=== PATIENT | male | born 1950 | race African-American/Black ===

== ENCOUNTER 2020-01-09 | Emergency (ER) | payer MEDICARE ==
[~2020-01-09] MED LIST: ACIDOPHILUS PRO PO; ALLOPURINOL300 MG PO; AMLODIPINE5 MG PO; AMOXIL500 MG OR; BENADRYL 50MG C50 MG OR; CARVEDILOL6.25 MG PO; CEPHALEXIN500 MG PO; CLARITIN10 M1 PO; FLONASE NASAL50 MCG; LISINOP/HCTZ1 TA1 PO; LOVASTATIN10 MG PO; METFORMIN500 MG PO; MYCOLOG30 GM EX; PREPARATION RE; ULTRAM50 M1 PO; [UNRECOGNIZED DRUG - REMARK]; [UNRECOGNIZED DRUG - REMARK] EX
[2020-01-09 13:02] LABS: URINE BILIRUBIN - DIPSTICK NEGATIVE (NEGATIVE); URINE BLOOD DIPSTICK NEGATIVE (NEGATIVE); URINE CLARITY CLEAR; URINE COLOR YELLOW; URINE GLUCOSE - DIPSTICK NEGATIVE (NEGATIVE); URINE KETONE TRACE mg/dL (NEGATIVE); URINE LEUK ESTERASE SMALL (Negative); URINE NITRITE - DIPSTICK NEGATIVE (Negative); URINE PROTEIN - DIPSTICK NEGATIVE (NEG-TRACE); URINE UROBILINOGEN - DIPSTICK 0.2 E.U./dL (0.2)
[2020-01-09 13:09] LABS: URINE SQUAMOUS EPITHELIAL CELL FEW EPI/hpf (0-FEW)
[2020-01-09] MEDS ORDERED: METRONIDAZOL500 MG PO ×2 (14:03)
[2020-01-09] MEDS ORDERED: CIPROFLOXACN500 MG PO ×2 (14:03)
== END 2020-01-09 14:10 | disposition home or self-care (01) ==
PROVIDERS: Family Medicine
DX: N39.0 Urinary tract infection, site not specified (principal); K57.32 Diverticulitis of large intestine without perforation or abscess without bleeding; I10 Essential (primary) hypertension; E11.9 Type 2 diabetes mellitus without complications; Z79.84 Long term (current) use of oral hypoglycemic drugs; Z87.442 Personal history of urinary calculi

== ENCOUNTER 2020-06-12 07:31 | Emergency (ER) | payer MEDICARE ==
[~2020-06-12] VITALS: Ht 188 cm; Wt 113.6 kg
[~2020-06-12 07:31] MED LIST changes: +CIPROFLOXACN500 MG PO; +METRONIDAZOL500 MG PO
[2020-06-12 08:19] LABS: URINE BILIRUBIN - DIPSTICK NEGATIVE (NEGATIVE); URINE BLOOD DIPSTICK NEGATIVE (NEGATIVE); URINE COLOR YELLOW; URINE GLUCOSE - DIPSTICK NEGATIVE (NEGATIVE); URINE KETONE NEGATIVE (NEGATIVE); URINE LEUK ESTERASE NEGATIVE (NEGATIVE); URINE NITRITE - DIPSTICK NEGATIVE (Negative); URINE PH 5.5 (4.5-8.0); URINE PROTEIN - DIPSTICK NEGATIVE (NEG-TRACE); URINE SPECIFIC GRAVITY 1.025; URINE UROBILINOGEN - DIPSTICK 0.2 E.U./dL (0.2)
[2020-06-12 08:24] LABS: HEMATOCRIT 40.9 % (39.0-50.0); HEMOGLOBIN 13.1 g/dl (14.0-18.0); IMMATURE GRANULOCYTES 0.4 % (0.0-5.0); MEAN CELL VOLUME 89.9 fL CALC (80.0-100.0); MEAN CORPUSCULAR HGB 28.8 pG CALC (26.0-32.0); NEUT# 3.01 thou/uL (1.82-7.42); RED BLOOD COUNT 4.55 mill/uL (4.70-6.10); RED CELL DISTRI WIDTH 15.2 % (11.5-15.5)
[2020-06-12 08:49] LABS: ALKALINE PHOSPHATASE 58 u/l (38-126); AMYLASE 95 u/l (30-110); ANION GAP 10 (6-22 (CALC)); BILIRUBIN, TOTAL 0.4 mg/dL (0.0-1.4); BUN 25 mg/dL (8-23); BUN/CREATININE RATIO 20 (12-20 (CALC)); CARBON DIOXIDE 24 mmol/l (22-30); CHLORIDE 105 mmol/l (95-108); CREATININE 1.2 mg/dL (0.7-1.3); GFR 60 ML/MIN (>=60 (CALC)); GFR FOR AFR.AMER. > 60 ML/MIN (>=60 (CALC)); LIPASE 222 u/l (23-300); POTASSIUM 4.2 mmol/l (3.5-5.1); SGOT/AST 40 u/l (19-48); SODIUM 134 mmol/l (137-146); TOTAL PROTEIN 6.9 g/dL (6.3-8.2)
[2020-06-12] MEDS ORDERED: ULTRAM50 M1 PO (10:14)
[2020-06-12] MEDS ORDERED: FLEXERIL PO (10:14)
[2020-06-12 10:30] VITALS: BP 112/70
== END 2020-06-12 10:30 | disposition home or self-care (01) ==
LOC: ED 07:31
PROVIDERS: Emergency Medicine
DX: M79.18 Myalgia, other site (principal); S20.221A Contusion of right back wall of thorax, initial encounter; E11.9 Type 2 diabetes mellitus without complications; I10 Essential (primary) hypertension; X58.XXXA Exposure to other specified factors, initial encounter; Z79.84 Long term (current) use of oral hypoglycemic drugs
CPT/HCPCS: Q9967

== ENCOUNTER 2021-06-12 07:22 | Inpatient (IN) | payer MEDICARE ==
[~2021-06-12] VITALS: Ht 188 cm; Wt 114.0 kg
[2021-06-12] VITALS (8 sets, daily range): BP systolic 135–145; BP diastolic 65–80
[~2021-06-12 07:22] MED LIST changes: +ADLT ASA LOW81 MG PO; +FLEXERIL PO; +XARELTO10 MG PO
--- NOTE | 2021-06-12 14:05 | NUR ---
REPORT RECEIVED FROM CHIDI IN [facility], PT TRANSPORTED TO INIT VIA STRETCHER ARRIVING AT 1308, GROGGY BUT ORIENTED, ABD BINDER IN PLACE AND CODI DRAIN IN PLACE WITH BLODY DRAINAGE, GAMBOA CATHETER IN PLACE WITH CLEAR YELLOW URINE, O2 @ 2L IN PLACE, C/O ABD PAIN AT 9/10, ORIENTED TO ROOM AND CALL GANDHI, BED LOCKED IN LOWEST POSITION.
--- NOTE | 2021-06-12 16:21 | NUR ---
LUPIS ROUNDED AFTER DR CHAMPION ROUNDED AND EXPLAINED COMPLICATION DURING PROCEDURE, PT IS HAVING ICE CHIPS AT THIS TIME ORDERED, PAIN CONCERN ADDRESSED, WILL CONTINUE TO MONITOR.
--- NOTE | 2021-06-12 22:04 | NUR ---
PATIENT RESTING IN BED SEMI FOWLERS POSITION. IVF INFUSING. ABD DRESSING VDI. ABDOMINAL BINDER IN POLACE. CODI DRAIN DRAINING SEROSANGUENOUS FLUID. C/O PAIN ADDRESSED WITH SCHEDULED AND PRN PAIN MEDICATIONS WITH POSITIVE EFFECT. ATTEMPTED TO CALL DR. CHAMPION FOR ORDER CLARIFICATION VIA NURSE FROM OFFICE AT 1999, 2014, 2024, ANDD 2199 WITHOUT SUCCESS. WILL CONTINUE TO MONITOR PATIENT CONDITION. MILLIE SAVAGE, PATIENT POST OP DAY 0. ASSESSMENT COMPLETED AND CHARTED. BED IN LOW POSITION. CALL LIGHT WITHIN REACH. GAMBOA CATHETER DRAINING YELLOW URINE TO GRAVITY.
[2021-06-13] VITALS: BP 138/74
--- NOTE | 2021-06-13 00:20 | NUR ---
SPOKE WITH Kranthi AT 0015 FOR ORDER CLARIFICATION. XARELTO GIVEN. WRONG NUMBER DIALED TO CELL PHONE INITIALLY. PATIENT IS IN NO ACUTE DISTRESS. IVABT INFUSING. ABD BINDER IN PLACE. 40CC SEROSANGUENOUS FLUID OUT FROM CODI DRAIN.
[2021-06-13 04:00] VITALS: BP 149/81
[2021-06-13 05:42] LABS: HEMATOCRIT 41.1 % (39.0-50.0); HEMOGLOBIN 13.4 g/dl (14.0-18.0); IMMATURE GRANULOCYTES 0.1 % (0.0-5.0); MEAN CELL VOLUME 93.4 fL CALC (80.0-100.0); MEAN CORPUSCULAR HGB 30.5 pG CALC (26.0-32.0); MEAN CORPUSCULAR HGB CONC 32.6 g/dL CAL (32.0-36.0); NEUT# 8.57 thou/uL (1.82-7.42); RED BLOOD COUNT 4.4 mill/uL (4.70-6.10); RED CELL DISTRI WIDTH 15.2 % (11.5-15.5)
[2021-06-13 06:16] LABS: CREATININE 1.4 mg/dL (0.7-1.3); POTASSIUM 4.5 mmol/l (3.5-5.1)
--- NOTE | 2021-06-13 07:06 | NUR ---
GAMBOA CATHETER DISCONTINUED. PATIENT TOLERATED WELL.
[2021-06-13 07:35] VITALS: BP 135/67
--- NOTE | 2021-06-13 08:00 | NUR ---
PT IN BED WHEN ARRIVED. VITALS AND ASSESSMENT DONE. PT IS ALERT AND ORIENTED. S1 AND S2 HEARD. LUNGS CLEAR. BOWEL SOUNDS ACTIVE IN ALL 4 QUADRANTS. PEDAL PULSES EQUAL BILATERALLY. DRESSING INTACT. IV'S PATENT AND HEALTHY X2. CODI DRAIN INTACT.
--- NOTE | 2021-06-13 08:10 | NUR ---
The patient is screened for PT intervention and no needs are identified at this time
--- NOTE | 2021-06-13 08:48 | NUR ---
The patient is screened for PT intervention and no needs are identified at this time
--- NOTE | 2021-06-13 10:59 | NUR ---
DR DU AND Patty PERERA APRN AT BEDSIDE DISCUSSING POC
--- NOTE | 2021-06-13 11:40 | NUR ---
DR CHAMPION AT BEDSIDE DISCUSSING POC
--- NOTE | 2021-06-13 11:40 | NUR ---
DR CHAMPION AT BEDSIDE DISCUSSING POC
--- NOTE | 2021-06-13 12:09 | NUR ---
PT AMBULATING DOWN THE HALLWAY WITH Trina RENO AT SIDE, STEADY GAIT OBSERVED.
[2021-06-13 15:00] VITALS: BP 152/73
--- NOTE | 2021-06-13 15:40 | NUR ---
PT VOIDED 500 ML OF SAVI COLORED URINE. NO OTHER NEEDS AT THIS TIME. CALL LIGHT WITHIN REACH.
--- NOTE | 2021-06-13 15:55 | NUR ---
PT AMBULATING HALLWAY THIS WRITTER AT SIDE, STEADY GATE OBSERVED. ACCOMPANIED PT BACK INTO BED. CALL LIGHT LEFT WITHIN REACH
--- NOTE | 2021-06-13 16:54 | NUR ---
INCENTIVE SPIROMETER GIVEN TO PT. PT DEMONSTRATED PROPER USE OF DEVICE. PT ACHIEVING 2500ML,X4 REPITITIONS. ENCOURAGED PT TO USE EVERY HR WHILE AWAKE. DEMONSTRATED TO PT HOW TO SPLINT TO RELIEVE ABDOMINAL DISCOMFORT DURING ACTIVITY. CALL LIGHT WITHIN REACH.
[2021-06-13 18:00] VITALS: BP 112/65
[2021-06-13 20:29] VITALS: BP 112/65
[2021-06-14 03:55] VITALS: BP 146/81
[2021-06-14 05:44] LABS: HEMATOCRIT 38.9 % (39.0-50.0); HEMOGLOBIN 12.9 g/dl (14.0-18.0); MEAN CELL VOLUME 92.8 fL CALC (80.0-100.0); MEAN CORPUSCULAR HGB 30.8 pG CALC (26.0-32.0); MEAN CORPUSCULAR HGB CONC 33.2 g/dL CAL (32.0-36.0); RED BLOOD COUNT 4.19 mill/uL (4.70-6.10); RED CELL DISTRI WIDTH 15.3 % (11.5-15.5)
[2021-06-14 05:59] LABS: ANION GAP 11 (6-22 (CALC)); BUN 14 mg/dL (8-23); BUN/CREATININE RATIO 11 (12-20 (CALC)); CARBON DIOXIDE 23 mmol/l (22-30); CHLORIDE 104 mmol/l (95-108); CREATININE 1.3 mg/dL (0.7-1.3); GFR 54 ML/MIN (>=60 (CALC)); GFR FOR AFR.AMER. > 60 ML/MIN (>=60 (CALC)); MAGNESIUM 1.9 mg/dL (1.6-2.3); SODIUM 134 mmol/l (137-146)
[2021-06-14 07:20] VITALS: BP 143/73
--- NOTE | 2021-06-14 07:20 | NUR ---
PT SLEEP UPON ENTERING ROOM. ASSESSMENT AND VITALS DONE. S1 AND S2 HEARD. LUNG SOUNDS CLEAR. BOWEL SOUNDS ACTIVE IN ALL 4 QUADRANTS. PEDAL PULSES BILATERALLY STRONG. PT IV PATENT AND HEALTHY. CODI DRAIN INTACT AND SUCTIONING. ABD BINDER ON AND DRESSINGS INTACT. NO DISTRESS NOTED. CALL LIGHT WITHIN REACH.
--- NOTE | 2021-06-14 12:00 | NUR ---
PT IN BED RESTING. CALL LIGHT WITHIN REACH. NO DISTRESS NOTED.
--- NOTE | 2021-06-14 12:24 | NUR ---
DRESSING CHANGED MD ORDERS. PT TOLERATED WELL. 17 ANATOLIY NOTED. INCISION CDI. CALL LIGHT WITHIN REACH.
--- NOTE | 2021-06-14 12:45 | NUR ---
DR CHAMPION AT BEDSIDE DISCUSSING POC
--- NOTE | 2021-06-14 16:00 | NUR ---
PT IN BED. NO DISTRESS NOTED. CALL LIGHT WITHIN REACH.
[2021-06-14 19:29] VITALS: BP 131/76
--- NOTE | 2021-06-14 19:30 | NUR ---
PATIENT RESTING IN BED AT THIS TIME-AWAKE ALERT AND ORIENTEDX3. PATIENT C/O POST-OP ABD PAIN-MEDICATED WITH DILAUDID 1MG IVP FOR 7/10 ABD PAIN. ABD DRESSING IN PLACE-CDI. ABD BINDER IN PLACE. CODI DRAIN TO LEFT AND INTACT WITH SMALL AMT OF SEROUS DRAINAGE AT THIS TIME. ABD IS DISTENDED WITH HYPOACTIVE BS. TAKING FULL LIQUID DIET IN SMALL AMTS. SALINE LOCK TO LEFT WRIST INTACT-REDRESSED AND J-LOOP APPLIED. SITE REMAINS HEALTHY WITH GOOD BLOOD RETURN. PATIENT IS ABLE TO DEMONSTRATE PROPER USE OF THE IS-REINFORCED. TO BE USED Q1H WHILE AWAkE IN REPS OF 10. VERBALIZES UNDERSTANDING.ENCOURAGED AMBULATION. SCD'S IN PLACE. CALL LIGHT IN REACH. WILL CONT TO MONITOR.
--- NOTE | 2021-06-14 21:00 | NUR ---
PATIENT UP AND AMBULATING IN THE BERGERON WITH SB ASSIST. STEADY ON HIS FEET. BACK TO ROOM AFTER WALKING THE B[place]GER[place]. CALL LIGHT IN REACH. WILL CONT TO MONITOR.
[2021-06-15] VITALS: BP 151/79
--- NOTE | 2021-06-15 01:56 | NUR ---
PATIENT RESTING IN BED AT THIS TIME WITH EYES CLOSED. RESPS ARE EVEN AND UNLABORED. CALL LIGHT IN REACH. WILL CONT TO MONITOR.
--- NOTE | 2021-06-15 02:51 | NUR ---
PATIENT RESTING IN BED-VOIDED 300CC OF SAVI URINE. C/O POST-OP ABD PAIN-MEDICATED WITH DILAUDID 1MG FOR 7/10 PAIN SCALE VIA LEFT WRIST SITE. SITE REMAINS HEALTHY. CALL LIGHT IN REACH. WILL CONT TO MONITOR.
[2021-06-15 04:00] VITALS: BP 142/79
--- NOTE | 2021-06-15 04:43 | NUR ---
PATIENT RESTING IN BED WITH EYES CLOSED. RESPS EVEN AND UNLABORED. ABD BINDER IN PLACE. CODI DRAIN INTACT AND EMPTIED. SALINE LOCK TO LEFT WRIST INTACT. CALL LIGHT IN REACH. WILL CONT TO MONITOR.
[2021-06-15 05:10] LABS: HEMATOCRIT 38.8 % (39.0-50.0); HEMOGLOBIN 12.6 g/dl (14.0-18.0); MEAN CELL VOLUME 93.3 fL CALC (80.0-100.0); MEAN CORPUSCULAR HGB 30.3 pG CALC (26.0-32.0); MEAN CORPUSCULAR HGB CONC 32.5 g/dL CAL (32.0-36.0); RED BLOOD COUNT 4.16 mill/uL (4.70-6.10); RED CELL DISTRI WIDTH 15.3 % (11.5-15.5)
[2021-06-15 05:24] LABS: ANION GAP 12 (6-22 (CALC)); BUN 14 mg/dL (8-23); BUN/CREATININE RATIO 13 (12-20 (CALC)); CARBON DIOXIDE 23 mmol/l (22-30); CHLORIDE 105 mmol/l (95-108); CREATININE 1.1 mg/dL (0.7-1.3); GFR > 60 ML/MIN (>=60 (CALC)); GFR FOR AFR.AMER. > 60 ML/MIN (>=60 (CALC)); POTASSIUM 4.3 mmol/l (3.5-5.1); SODIUM 136 mmol/l (137-146)
--- NOTE | 2021-06-15 05:41 | NUR ---
PATIENT RESTING IN BED AT THIS TIME WITH EYES CLOSED. RESPS ARE EVEN AND UNLABORED. CODI EMPTIED FOR 40CC OF SEROUS FLUID. CALL LIGHT IN REACH. WILL CONT TO MONITOR.
[2021-06-15 07:24] VITALS: BP 161/88
--- NOTE | 2021-06-15 07:24 | NUR ---
PT IN BED WHILE ENTERING ROOM. VITALS AND ASSESSMENT PERFORMED. S1 AND S2 NOTED. LUNG SOUNDS CLEAR. PT WAS ON O2 2 L WHEN I ASSESSED HIM. BOWEL SOUNDS HYPOACTIVE. PEDAL PULSES STRONG BILATERALLY. IV INTACT AND HEALTHY. BINDER IN PLACE WITH DRESSING CDI. CODI DRAIN INTACT AND SUCTIONING. NO DRAINAGE NOTED. NO DISTRESS NOTED. CALL LIGHT WITHIN REACH.
--- NOTE | 2021-06-15 07:56 | NUR ---
PT UP WALKING WITH HERMANN DEAN. NO DISTRESS NOTED. GAIT STEADY.
--- NOTE | 2021-06-15 08:13 | NUR ---
PT AMBULATED DOWN HALLWAYS ACCOMPANIED BY THIS CARE ANALYST. STEADY GAIT, PT ENCOURAGED TO AMBULATE AT LEAST Q4HRS. PT AGREEABLE, SAT IN CHAIR DURING LINEN CHANGE, ENCOURAGED TO EAT BREAKFAST. NO NEEDS AT THIS TIME. CALL DCO SHEARER.
--- NOTE | 2021-06-15 12:00 | NUR ---
PT IN BED. NO DISTRESS NOTED. CALL LIGHT WITHIN REACH.
--- NOTE | 2021-06-15 13:22 | NUR ---
DR. CHAMPION AT BEDSIDE DISCUSSING POC.
[2021-06-15 15:10] VITALS: BP 183/79
--- NOTE | 2021-06-15 16:00 | NUR ---
PTS DRESSING CHANGED. PT TOLERATED WELL. NO OTHER NEEDS AT THIS TIME. CALL LIGHT WITHIN REACH.
--- NOTE | 2021-06-15 16:45 | NUR ---
PT AMBULATED IN THE HALLWAY WITH LOAN EXAMINER. STEADY GAIT. PT TOLERATED WELL.
[2021-06-15 18:58] VITALS: BP 141/70
--- NOTE | 2021-06-15 20:00 | NUR ---
RECEIVED PT FROM DAY SHIFT RN. PT ORIENTED TO PERSON, PLACE AND TIME. PAIN MEDS GAVE (SEE EMAR). VITAL SIGNS ARE STABLE. LAST BLOOD SUGAR 106mg/dl, NOT CRITERIA FOR INSULIN PER DOCTOR ORDER. EDUCATED PT ABOUT MEDICATIONS, PAIN MEDICATIONS, FALLS AND INFECTIONS PRECAUTIONS AND PLAN OF CARE.
[2021-06-15 23:48] VITALS: BP 123/74
--- NOTE | 2021-06-15 23:57 | NUR ---
Hourly Rounding. HR 52 Lpm, PT refused any signs or symtoms. From the flowsheet HR Normally Runnin-55 Lpm. PT observed calm and sleep. Rest of vital signs are stable. Educated PT to notified any symtoms to the nurse.
--- NOTE | 2021-06-16 00:27 | NUR ---
HOURLY ROUNDING. PT OBSERVED SLEEP AND CALM. ANY COMPLAINT ABOUT CHEST PAIN OR PAIN. RE-EDUCATED PT TO NOTIFIED ANY SYMTOMS.
--- NOTE | 2021-06-16 01:19 | NUR ---
RE-ASSESMENT HR ARE 55 LPM. PT OBSERVED CALM AND ALERT. ANY COMPLAIN ABOUT PAIN. RE-EDUCATED PT ABOUT NOTIFIED ANY SYMTOMS.
[2021-06-16 04:00] VITALS: BP 161/79
--- NOTE | 2021-06-16 04:26 | NUR ---
HOURLY ROUNDING. HR ARE AROUND 50-55 Lpm. EDUCATED PT ABOT PAIN MEDS AND INFECTION PRECAUTIONS.
--- NOTE | 2021-06-16 07:15 | NUR ---
REPORT RECEIVED FROM DIANNE OCHOA
[2021-06-16 08:20] VITALS: BP 139/74
--- NOTE | 2021-06-16 08:20 | NUR ---
PT RESTING IN SEMI FOWLERS POSITION,A&O X3;VS OBTAINED AND ASSESSMENT COMPLETED;PT DENIES ANY CURRENT PAIN OR DISCOMFORTS,PAIN SCALE AND REPORTING EDUCATED;PT POD #4 EXPLORATORY LAPAROTOMY WITH REPAIR OF COLONIC PERFORATION;RESPIRATIONS EVEN AND UNLABORED ON RA,CLEAR LUNG SOUNDS;I.S. AT BEDSIDE AND PT DEMONSTRATED USE,ENCOURAGED USE 10X PER HOUR;ABDOMEN DISTENDED/SOFT ON PALPATION AND HYPOACTIVE IN ALL 4 QUADRANTS;CODI PATENT TO LEFT QUADRANT WITH SCANT BLOODY DRAINAGE NOTED AND DRESSING CDI;ABDOMINAL BINDER ALSO IN PLACE;SKIN INTACT;#20G TO LAC FLUSHED AND PATENT,SITE APPEARS HEALTHY;PT DENIES ANY ADDITIONAL NEEDS AND IS ENCOURAGED TO CALL FOR ASSISTANCE IF NEEDED;FALL PRECAUTIONS IN PLACE WITH BED IN THE LOWEST POSITION AND CALL LIGHT IN REACH;WILL CONTINUE TO MONITOR
--- NOTE | 2021-06-16 09:40 | NUR ---
AT BEDSIDE DISCUSSING POC.
--- NOTE | 2021-06-16 10:12 | NUR ---
PT AMBULATING THE HALLWAY WITH A STEADY GAIT.
--- NOTE | 2021-06-16 10:35 | NUR ---
PT REPORTS ABDOMINAL PAIN RATING 7/10 ON THE PAIN SCALE,PT MEDICATED WITH PRN LORTAB 5/325MG PO;ABDOMINAL DRESSINGS CHANGED AT THIS TIME PER ORDER, [address] TO BE IN PLACE;PT DENIES ANY ADDITIONAL NEEDS;ENCOURAGED TO CALL FOR ASSISTANCE IF NEEDED;CALL LIGHT IN REACH;WILL CONTINUE TO MONITOR
--- NOTE | 2021-06-16 11:20 | NUR ---
AT AT BEDSIDE DISCUSSING POC.
--- NOTE | 2021-06-16 12:00 | NUR ---
PT RESTING IN SEMI FOWLERS POSITION;RESPIRATIONS EVEN AND UNLABORED ON RA;PT REPORTS ABDOMINAL PAIN UNRELIEVED BY PRN LORTAB AND REQUESTS ADDITIONAL PAIN MEDICATION FOR ABDOMINAL PAIN RATING 7/10 ON THE PAIN SCALE;PT MEDICATED WITH PRN DILAUDID 1MG SLOW IVP;IV SITE PATENT;CODI DRAIN REMAINS IN PLACE TO SUCTION;ACCUCHECK 162, PT COVERED WITH SLIDING SCALE INSULIN PER ORDER;PT DENIES ANY ADDITIONAL NEEDS AT THIS TIME;ENCOURAGED TO CALL FOR ASSISTANCE IF NEEDED;FALL PRECAUTIONS REMAIN IN PLACE WITH CALL LIGHT IN REACH;WILL CONTINUE TO MONITOR
--- NOTE | 2021-06-16 12:45 | NUR ---
CODI DRAIN REMOVED TO LEFT QUADRANT AT THIS TIME PER ORDER,PT TOLERATED WELL;SITE DRESSED WITH A DRY DRESSING AND TEGADERM;PT DENIES ANY ADDITIONAL NEEDS;CALL LIGHT IN REACH;WILL CONTINUE TO MONITOR
--- NOTE | 2021-06-16 14:40 | NUR ---
PT MEDICATED WITH PRN DILAUDID 1MG SLOW IVP FOR ABDOMINAL PAIN RATING 7/10 ON THE PAIN SCALE.PRIOR TO ADMINISTRATION PT EDUCATED ON THE IMPORTANCE OF SWITCHING TO PO PAIN MEDICATION BUT REFUSES AT THIS TIME;WILL CONTINUE TO MONITOR FOR EFFECTIVENESS
[2021-06-16 14:50] VITALS: BP 170/86
[2021-06-16 15:25] VITALS: BP 153/95
--- NOTE | 2021-06-16 15:25 | NUR ---
PT RESTING IN SEMI FOWLERS POSITION;RESPIRATIONS EVEN AND UNLABORED ON RA;PT REPORTS DECREASE IN PAIN SINCE PAIN MEDICATION ADMINISTRATION;IV SITE PATENT; ABDOMINAL DRESSING CDI WITH ABDOMINAL BINDER IN PLACE;BP R-ECHECK 153/85 HR 48;PT ENCOURAGED TO CALL FOR ASSISTANCE IF NEEDED;FALL PRECAUTIONS IN PLACE WITH CALL LIGHT IN REACH;WILL CONTINUE TO MONITOR
--- NOTE | 2021-06-16 19:28 | NUR ---
PT MEDICATED WITH PRN LORATB 5/325MG PO FOR ABDOMINAL PAIN RATING 7/10 ON THE PAIN SCALE.WILL CONTINUE TO MONITOR
--- NOTE | 2021-06-16 21:00 | NUR ---
PATIENT IS AWAKE IN BED. PLEASANT. DENIES PAIN. ON TELEMETRY. NO COMPLAINTS. FALL PRECAUTIONS MAINTAINED. ASSESSMENT COMPLETED AND CHARTED. BED IN LOW POSITION. CALL LIGHT WITHIN REACH.
--- NOTE | 2021-06-16 22:18 | NUR ---
PATIENT IS ALERT AND ORIENTED X3. ABLE TO MAKE NEEDS KNOWN. RESPIRATIONS EASY ON ROOM AIR. C/O PAIN ADDRESSED WITH PRN PAIN MEDICATION WITH POSITIVE EFFECT WITH DILAUDID. PATIENT REPORTS LORTAB IS NOT EFFECTIVE. ASSESSMENT COMPLETED AND CHARTED. BED IN LOW POSITION. CALL LIGHT WITHIN REACH.
--- NOTE | 2021-06-17 03:22 | NUR ---
NO COMPLAINTS VERBALIZED. RESTING SEMI FOWLERS POSITION. FALL PRECAUTIONS MAINTAINED.
[2021-06-17 04:00] VITALS: BP 161/84
--- NOTE | 2021-06-17 05:05 | NUR ---
PATIENT OBSERVED SNORING. NO ACUTE DISTRESS NOTED. BED IN LOW POSITION. [facility].
--- NOTE | 2021-06-17 07:15 | NUR ---
REPORT RECEIVED FROM DIANNE SYED
--- NOTE | 2021-06-17 07:40 | NUR ---
PT RESTING IN SEMI FOWLERS POSITION,A&O X3;VS OBTAINED AND ASSESSMENT COMPLETED;PT REPORTS PAIN LEVEL HAS DECREASED AT THIS TIME AFTER PRN PAIN MEDICATION ADMINISTRATION,PAIN SCALE AND REPORTING EDUCATED;PT POD #5 EXPLORATORY LAP W/ COLONIC PERFORATION REPAIR;RESPIRATIONS EVEN AND UNLABORED ON RA,CLEAR LUNG SOUNDS;I.S. AT BEDSIDE AND PT EDUCATED USE 10X PER HOUR;ABDOMEN DISTENDED/SOFT ON PALPATION AND HYPOACTIVE IN ALL 4 QUADRANTS;ABDOMINAL DRESSINGS REMOVED AND NEW DRY DRESSING APPLIED, [address];ABDOMINAL BINDER RE-APPLIED;WEAK PEDAL PULSES WITH SCD'S NOTED;#20G TO LW FLUSHED AND PATENT,SITE APPEARS HEALTHY;ACCUCHECK 132, NO COVERAGE NEEDED;PT DENIES ANY ADDITIONAL NEEDS AND IS ENCOURAGED TO CALL FOR ASSISTANCE IF NEEDED;FALL PRECAUTIONS IN PLACE WITH BED IN THE LOWEST POSITION AND CALL LIGHT IN REACH;WILL CONTINUE TO MONITOR
[2021-06-17 07:42] VITALS: BP 158/86
--- NOTE | 2021-06-17 09:48 | NUR ---
AT BEDSIDE DISCUSSING POC.
--- NOTE | 2021-06-17 11:35 | NUR ---
PT APPEARS TO BE SLEEPING IN SEMI FOWLERS POSITION;RESPIRATIONS APPEAR EVEN AND UNLABORED ON RA;NO S/S OF DISTRESS NOTED;ABDOMINAL BINDER IN PLACE;ACCUCHECK 137, NO COVERAGE NEEDED;ALL SAFETY PRECAUTIONS IN PLACE WITH BED IN THE LOWEST POSITION AND CALL LIGHT IN REACH;WILL CONTINUE TO MONITOR
--- NOTE | 2021-06-17 13:38 | NUR ---
AT BEDSIDE DISCUSSING POC WITH PT.
--- NOTE | 2021-06-17 14:39 | NUR ---
PT RESTING IN SEMI FOWLERS POSITION WITH SPOUSE AT BEDSIDE;PT REPORTS ABDOMINAL PAIN RATING 7/10 ON THE PAIN SCALE AND REQUESTS PRN PAIN MEDICATION,PT MEDICATED WITH PRN PERCOCET 5/325MG PO;WILL CONTINUE TO MONITOR FOR EFFECTIVENESS
[2021-06-17 14:55] VITALS: BP 170/82
[2021-06-17 15:50] VITALS: BP 160/89
--- NOTE | 2021-06-17 15:50 | NUR ---
PT RESTING IN SEMI FOWLERS POSITION;RESPIRATIONS EVEN AND UNLABORED ON RA;PT REPORTS ABDOMINAL PAIN HAS DECREASED SINCE PAIN MEDICATION ADMINISTRATION;IV SITE PATENT;BP RE-CHECK 160/89 HR 49;PT DENIES ANY ADDITIONAL NEEDS;ENCOURAGED TO CALL FOR ASSISTANCE IF NEEDED;CALL LIGHT IN REACH;WILL CONTINUE TO MONITOR
[2021-06-17 19:00] VITALS: BP 155/74
--- NOTE | 2021-06-17 20:31 | NUR ---
PATIENT IS SEMI FOWLERS. ALERT AND ORIENTED X3. C/O PAIN TO LOWER ABDOMEN 05/03. REQUESTING PAIN MEDICATION WITH MEDICATION ADMINISTRATION PASS. ABDOMINAL BINDER IN PLACE. ABD DRESSING C/D/I. ABD DISTENDED. ASSESSMENT COMPLETED AND CHARTED. BED IN LOW POSITION. CALL LIGHT WITHIN REACH. UP IN [place] AMBULATING AT THIS TI ME.
--- NOTE | 2021-06-18 00:36 | NUR ---
RESTING WITH EYES CLOSED. RESPIRATIONS NONLABORED. BED IN LOW POSITION. CALL LIGHT WITHIN REACH.
[2021-06-18 03:30] VITALS: BP 153/81
--- NOTE | 2021-06-18 07:32 | NUR ---
Patient is screened for PT intervention and may benefit from consult if medical agrees
[2021-06-18 08:00] VITALS: BP 138/80
--- NOTE | 2021-06-18 08:00 | NUR ---
PT SITTING UP ON THE SIDE OF THE BED, AXOX3. C/O ABD PAIN, MED PER ORDER. ABD BINDER IN PLACE. DRESSING IN PLACE. PT STATES SHE WOULD LIKE TO GO HOME TODAY. SHIRA CONNER UP CALL LIGHT IN REACH BED LOCKED IN LOW POSITION, WILL CONITNUE TO MONIOTR THE PATIENT.
[2021-06-18 08:24] VITALS: BP 138/83
--- NOTE | 2021-06-18 10:00 | NUR ---
INSTRUCTED THE PATIENT ON DRESSING CHANGES,
--- NOTE | 2021-06-18 12:00 | NUR ---
INFORMED PATIENT OF DISCHARGE.
[2021-06-18] MEDS ORDERED: PERCOCET 5/325M1 TAB PO (12:46)
--- NOTE | 2021-06-18 13:48 | NUR ---
DRESSING CHANGE DONE AAS PER ORDER.
--- NOTE | 2021-06-18 14:51 | NUR ---
DISCHARGE ORDERS GIVEN UNDERSTOOD AND SIGNED. SCRIPT FOR PAIN MEDICATION GIVEN TO THE PT. PT LEFT TO GO TO HIS OWN HOME WITH HIS VIA WHEELCHAIR.
== END 2021-06-18 14:56 | disposition home or self-care (01) | DRG 909 ==
LOC: ENDO 07:22 → MS2 12:58
PROVIDERS: Nurse Practitioner; ADMIT Surgery; ATTEND Hospitalist
PROC: 0DQN0ZZ Repair Sigmoid Colon, Open Approach (ICD-10-PCS; principal; 2021-06-12)
PROC: 0DJD8ZZ Inspection of Lower Intestinal Tract, Via Natural or Artificial Opening Endoscopic (ICD-10-PCS; 2021-06-12)
DX: K91.71 Accidental puncture and laceration of a digestive system organ or structure during a digestive system procedure (principal); K57.30 Diverticulosis of large intestine without perforation or abscess without bleeding; I10 Essential (primary) hypertension; I25.10 Atherosclerotic heart disease of native coronary artery without angina pectoris; E11.9 Type 2 diabetes mellitus without complications; E78.5 Hyperlipidemia, unspecified; M10.9 Gout, unspecified; I48.91 Unspecified atrial fibrillation; Y83.8 Other surgical procedures as the cause of abnormal reaction of the patient, or of later complication, without mention of misadventure at the time of the procedure; Y92.234 Operating room of hospital as the place of occurrence of the external cause; Z79.84 Long term (current) use of oral hypoglycemic drugs; Z79.01 Long term (current) use of anticoagulants; Z12.11 Encounter for screening for malignant neoplasm of colon
CPT/HCPCS: 44604; G0121; J0131; J1100; J2710

== ENCOUNTER 2021-06-26 11:16 | Emergency (ER) | payer MEDICARE ==
[~2021-06-26 11:16] MED LIST changes: +PERCOCET 5/325M1 TAB PO
[2021-06-26 14:24] LABS: HEMATOCRIT 40.1 % (39.0-50.0); HEMOGLOBIN 12.8 g/dl (14.0-18.0); IMMATURE GRANULOCYTES 0.3 % (0.0-5.0); MEAN CORPUSCULAR HGB 29.7 pG CALC (26.0-32.0); MEAN CORPUSCULAR HGB CONC 31.9 g/dL CAL (32.0-36.0); NEUT# 5.31 thou/uL (1.82-7.42); RED BLOOD COUNT 4.31 mill/uL (4.70-6.10); RED CELL DISTRI WIDTH 14.8 % (11.5-15.5)
[2021-06-26 14:37] LABS: ALBUMIN 4.2 g/dL (3.2-5.0); ALKALINE PHOSPHATASE 127 u/l (38-126); ANION GAP 13 (6-22 (CALC)); BILIRUBIN, TOTAL 0.5 mg/dL (0.0-1.4); BUN 22 mg/dL (8-23); BUN/CREATININE RATIO 17 (12-20 (CALC)); CARBON DIOXIDE 28 mmol/l (22-30); CHLORIDE 96 mmol/l (95-108); CREATININE 1.3 mg/dL (0.7-1.3); GFR 54 ML/MIN (>=60 (CALC)); GFR FOR AFR.AMER. > 60 ML/MIN (>=60 (CALC)); POTASSIUM 4.3 mmol/l (3.5-5.1); SGOT/AST 31 u/l (19-48); SODIUM 132 mmol/l (137-146); TOTAL PROTEIN 7.6 g/dL (6.3-8.2)
[2021-06-26 16:46] VITALS: BP 167/90
[2021-08-15] MEDS ORDERED: PERCOCET 5/325M1 TAB PO (09:29)
== END 2021-06-26 18:12 | disposition home or self-care (01) ==
LOC: ED 11:16
DX: T81.31XA Disruption of external operation (surgical) wound, not elsewhere classified, initial encounter (principal); E11.9 Type 2 diabetes mellitus without complications; I10 Essential (primary) hypertension; E78.00 Pure hypercholesterolemia, unspecified; Y83.9 Surgical procedure, unspecified as the cause of abnormal reaction of the patient, or of later complication, without mention of misadventure at the time of the procedure; Z79.84 Long term (current) use of oral hypoglycemic drugs
CPT/HCPCS: Q9967

== ENCOUNTER → 2021-07-26 | Outpatient (REF) | payer MEDICARE | END | disposition home or self-care (01) | LOC: LAB 07:53 | PROVIDERS: ATTEND Urology | DX: N40.0 Benign prostatic hyperplasia without lower urinary tract symptoms (principal) ==

== ENCOUNTER 2022-05-01 07:04 | Emergency (ER) | payer MEDICARE ==
[~2022-05-01] VITALS: Ht 188 cm; Wt 111.5 kg
[2022-05-01 07:13] VITALS: BP 143/83
[2022-05-01 07:16] VITALS: BP 137/85
[2022-05-01 07:21] VITALS: BP 125/81
[2022-05-01 07:38] LABS: URINE BILIRUBIN - DIPSTICK NEGATIVE (NEGATIVE); URINE BLOOD DIPSTICK SMALL (NEGATIVE); URINE COLOR YELLOW; URINE GLUCOSE - DIPSTICK NEGATIVE (NEGATIVE); URINE KETONE NEGATIVE (NEGATIVE); URINE PH 5.5 (4.5-8.0); URINE PROTEIN - DIPSTICK NEGATIVE (NEG-TRACE); URINE SPECIFIC GRAVITY 1.015; URINE UROBILINOGEN - DIPSTICK 0.2 E.U./dL (0.2)
[2022-05-01 07:39] LABS: URINE LEUK ESTERASE SMALL (NEGATIVE); URINE NITRITE - DIPSTICK NEGATIVE (Negative)
[2022-05-01 07:40] VITALS: BP 122/75
[2022-05-01 07:45] LABS: URINE BACTERIA MODERATE hpf; URINE MUCUS FEW hpf (NONE-FEW); URINE SQUAMOUS EPITHELIAL CELL FEW EPI/hpf (0-FEW); URINE WBC 50-100 WBC/hpf (0-5)
[2022-05-01] MEDS ORDERED: PYRIDIUM200 MG PO (07:53)
[2022-05-01] MEDS ORDERED: KEFLEX500 MG PO (07:53)
[2022-05-01 08:00] VITALS: BP 123/76
== END 2022-05-01 08:19 | disposition home or self-care (01) ==
LOC: ED 07:04
PROVIDERS: Emergency Medicine
DX: N39.0 Urinary tract infection, site not specified (principal); I10 Essential (primary) hypertension; E11.9 Type 2 diabetes mellitus without complications; E78.00 Pure hypercholesterolemia, unspecified; B96.20 Unspecified Escherichia coli [E. coli] as the cause of diseases classified elsewhere; Z87.442 Personal history of urinary calculi; Z79.84 Long term (current) use of oral hypoglycemic drugs

== ENCOUNTER 2022-08-04 12:44 | Emergency (ER) | payer MEDICARE ==
[~2022-08-04] VITALS: Ht 188 cm; Wt 113.0 kg
[2022-08-04] VITALS (14 sets, daily range): BP systolic 128–155; BP diastolic 66–82
[~2022-08-04 12:44] MED LIST changes: +KEFLEX500 MG PO; +OMNI-PAC300 MG PO; +PYRIDIUM200 MG PO
[2022-08-04 13:38] LABS: HEMATOCRIT 37.1 % (39.0-50.0); HEMOGLOBIN 12.2 g/dl (14.0-18.0); IMMATURE GRANULOCYTES 0.2 % (0.0-5.0); MEAN CELL VOLUME 91.8 fL CALC (80.0-100.0); MEAN CORPUSCULAR HGB 30.2 pG CALC (26.0-32.0); MEAN CORPUSCULAR HGB CONC 32.9 g/dL CAL (32.0-36.0); NEUT# 4.29 thou/uL (1.82-7.42); RED BLOOD COUNT 4.04 mill/uL (4.70-6.10); RED CELL DISTRI WIDTH 15.4 % (11.5-15.5)
[2022-08-04 13:45] LABS: ALBUMIN 4.2 g/dL (3.2-5.0); ANION GAP 14 (6-22 (CALC)); BUN 17 mg/dL (8-23); BUN/CREATININE RATIO 13 (12-20 (CALC)); CARBON DIOXIDE 24 mmol/l (22-30); CHLORIDE 100 mmol/l (95-108); CREATININE 1.3 mg/dL (0.7-1.3); GFR FOR AFR.AMER. > 60 ML/MIN (>=60 (CALC)); GFR OTHER RACES 54 ML/MIN (>=60 (CALC)); POTASSIUM 3.9 mmol/l (3.5-5.1); SGOT/AST 46 u/l (19-48); SODIUM 134 mmol/l (137-146); TOTAL PROTEIN 7.4 g/dL (6.3-8.2)
[2022-08-04 14:07] LABS: ALKALINE PHOSPHATASE 113 u/l (38-126); BILIRUBIN, TOTAL 0.5 mg/dL (0.0-1.4)
[2022-08-04 15:17] LABS: URINE BILIRUBIN - DIPSTICK NEGATIVE (NEGATIVE); URINE BLOOD DIPSTICK TRACE-INTACT (NEGATIVE); URINE COLOR YELLOW; URINE GLUCOSE - DIPSTICK NEGATIVE (NEGATIVE); URINE KETONE NEGATIVE (NEGATIVE); URINE PROTEIN - DIPSTICK NEGATIVE (NEG-TRACE)
[2022-08-04 15:18] LABS: URINE LEUK ESTERASE MODERATE (NEGATIVE); URINE NITRITE - DIPSTICK NEGATIVE (Negative)
[2022-08-04 15:25] LABS: URINE SQUAMOUS EPITHELIAL CELL FEW EPI/hpf (0-FEW)
[2022-08-04] MEDS ORDERED: OMNI-PAC300 MG PO (15:50)
== END 2022-08-04 16:33 | disposition home or self-care (01) ==
LOC: ED 12:44
PROVIDERS: Family Medicine
DX: N39.0 Urinary tract infection, site not specified (principal); I12.9 Hypertensive chronic kidney disease with stage 1 through stage 4 chronic kidney disease, or unspecified chronic kidney disease; E11.22 Type 2 diabetes mellitus with diabetic chronic kidney disease; N18.9 Chronic kidney disease, unspecified

== ENCOUNTER 2022-11-21 17:16 | Observation (INO) | payer MEDICARE ==
[~2022-11-21] VITALS: Ht 188 cm; Wt 102.0 kg
[2022-11-21] VITALS (11 sets, daily range): BP systolic 107–157; BP diastolic 64–81
[2022-11-21 18:11] LABS: URINE BILIRUBIN - DIPSTICK NEGATIVE (NEGATIVE); URINE BLOOD DIPSTICK LARGE (NEGATIVE); URINE COLOR YELLOW; URINE GLUCOSE - DIPSTICK NEGATIVE (NEGATIVE); URINE KETONE NEGATIVE (NEGATIVE); URINE PH 5.5 (4.5-8.0); URINE PROTEIN - DIPSTICK NEGATIVE (NEG-TRACE); URINE SPECIFIC GRAVITY 1.015
[2022-11-21 18:14] LABS: URINE LEUK ESTERASE SMALL (NEGATIVE); URINE NITRITE - DIPSTICK POSITIVE (Negative)
[2022-11-21 18:20] LABS: BASO% 0.3 % (0-3); EOS% 7.7 % (0-8); HEMATOCRIT 35.3 % (39.0-50.0); HEMOGLOBIN 12.2 g/dl (14.0-18.0); IMMATURE GRANULOCYTES 0.3 % (0.0-5.0); LYMPH% 10.6 % (15-41); MEAN CELL VOLUME 89.4 fL CALC (80.0-100.0); MEAN CORPUSCULAR HGB 30.9 pG CALC (26.0-32.0); MEAN CORPUSCULAR HGB CONC 34.6 g/dL CAL (32.0-36.0); MONO% 17.8 % (2-13); NEUT# 4.68 thou/uL (1.82-7.42); NEUT% 63.3 % (42-76); RED BLOOD COUNT 3.95 mill/uL (4.70-6.10); RED CELL DISTRI WIDTH 14.8 % (11.5-15.5)
[2022-11-21 18:22] LABS: URINE BACTERIA FEW hpf; URINE WBC 20-50 WBC/hpf (0-5)
[2022-11-21] MEDS ORDERED: OMNI-PAC300 MG PO (18:26)
[2022-11-21 18:34] LABS: ALBUMIN 4.5 g/dL (3.2-5.0); CREATININE 1.9 mg/dL (0.7-1.3)
[2022-11-22 04:53] VITALS: BP 126/52
[2022-11-22 05:33] LABS: BASO% 0.4 % (0-3); EOS% 11.3 % (0-8); HEMATOCRIT 36.2 % (39.0-50.0); HEMOGLOBIN 12.4 g/dl (14.0-18.0); IMMATURE GRANULOCYTES 0.4 % (0.0-5.0); LYMPH% 8.9 % (15-41); MEAN CELL VOLUME 89.2 fL CALC (80.0-100.0); MEAN CORPUSCULAR HGB 30.5 pG CALC (26.0-32.0); MEAN CORPUSCULAR HGB CONC 34.3 g/dL CAL (32.0-36.0); MONO% 14.8 % (2-13); NEUT# 3.59 thou/uL (1.82-7.42); NEUT% 64.2 % (42-76); RED BLOOD COUNT 4.06 mill/uL (4.70-6.10); RED CELL DISTRI WIDTH 14.7 % (11.5-15.5)
[2022-11-22 05:58] LABS: ALBUMIN 3.8 g/dL (3.2-5.0); BILIRUBIN, TOTAL 1.7 mg/dL (0.0-1.4); CREATININE 1.5 mg/dL (0.7-1.3); POTASSIUM 3.9 mmol/l (3.5-5.1); TOTAL PROTEIN 6.8 g/dL (6.3-8.2)
[2022-11-22 07:00] VITALS: BP 135/66
[2022-11-22 11:26] VITALS: BP 114/65
[2022-11-22] MEDS ORDERED: KEFLEX500 MG PO (18:36)
== END 2022-11-22 18:52 | disposition home or self-care (01) ==
LOC: ED 17:16 → ED-I 20:13 → ED 20:23 → MS2 20:24
PROVIDERS: Family Medicine; Nurse Practitioner Family; ADMIT Internal Medicine; ATTEND Internal Medicine
DX: N39.0 Urinary tract infection, site not specified (principal); R31.9 Hematuria, unspecified; I12.9 Hypertensive chronic kidney disease with stage 1 through stage 4 chronic kidney disease, or unspecified chronic kidney disease; E11.22 Type 2 diabetes mellitus with diabetic chronic kidney disease; N18.9 Chronic kidney disease, unspecified; N28.89 Other specified disorders of kidney and ureter; I25.10 Atherosclerotic heart disease of native coronary artery without angina pectoris; E78.00 Pure hypercholesterolemia, unspecified; M10.9 Gout, unspecified; B96.20 Unspecified Escherichia coli [E. coli] as the cause of diseases classified elsewhere; Z79.84 Long term (current) use of oral hypoglycemic drugs; Z87.442 Personal history of urinary calculi; Z79.01 Long term (current) use of anticoagulants; N52.01 Erectile dysfunction due to arterial insufficiency

== ENCOUNTER 2023-04-15 08:02 | Emergency (ER) | payer MEDICARE ==
[~2023-04-15] VITALS: Ht 188 cm; Wt 115.9 kg
[2023-04-15] VITALS (8 sets, daily range): BP systolic 107–124; BP diastolic 72–80
[2023-04-15 09:04] LABS: BASO% 0.3 % (0-3); EOS% 11.5 % (0-8); HEMATOCRIT 39.9 % (39.0-50.0); HEMOGLOBIN 12.8 g/dl (14.0-18.0); IMMATURE GRANULOCYTES 0.2 % (0.0-5.0); LYMPH% 13.1 % (15-41); MEAN CELL VOLUME 92.6 fL CALC (80.0-100.0); MEAN CORPUSCULAR HGB 29.7 pG CALC (26.0-32.0); MEAN CORPUSCULAR HGB CONC 32.1 g/dL CAL (32.0-36.0); MONO% 12.8 % (2-13); NEUT# 3.84 thou/uL (1.82-7.42); NEUT% 62.1 % (42-76); RED BLOOD COUNT 4.31 mill/uL (4.70-6.10); RED CELL DISTRI WIDTH 15.5 % (11.5-15.5)
[2023-04-15 09:07] LABS: URINE BILIRUBIN - DIPSTICK NEGATIVE (NEGATIVE); URINE BLOOD DIPSTICK TRACE-INTACT (NEGATIVE); URINE COLOR YELLOW; URINE GLUCOSE - DIPSTICK NEGATIVE (NEGATIVE); URINE KETONE NEGATIVE (NEGATIVE); URINE PROTEIN - DIPSTICK NEGATIVE (NEG-TRACE); URINE SPECIFIC GRAVITY <=1.005; URINE UROBILINOGEN - DIPSTICK 0.2 E.U./dL (0.2)
[2023-04-15 09:08] LABS: URINE LEUK ESTERASE SMALL (NEGATIVE); URINE NITRITE - DIPSTICK NEGATIVE (Negative)
[2023-04-15 09:12] LABS: URINE BACTERIA MODERATE hpf; URINE RBC 0-2 RBC/hpf (0-5)
[2023-04-15 09:17] LABS: ALBUMIN 4.5 g/dL (3.2-5.0); BILIRUBIN, TOTAL 0.4 mg/dL (0.2-1.3); CREATININE 1.7 mg/dL (0.7-1.3); POTASSIUM 4.3 mmol/l (3.5-5.1); TOTAL PROTEIN 7.3 g/dL (6.3-8.2)
[2023-04-15] MEDS ORDERED: CEFDINIR300 MG PO (09:59)
== END 2023-04-15 10:24 | disposition home or self-care (01) ==
LOC: ED 08:02
PROVIDERS: Family Medicine
DX: N39.0 Urinary tract infection, site not specified (principal); I10 Essential (primary) hypertension; E11.9 Type 2 diabetes mellitus without complications; E78.00 Pure hypercholesterolemia, unspecified; Z87.442 Personal history of urinary calculi; Z79.84 Long term (current) use of oral hypoglycemic drugs; N18.30 Chronic kidney disease, stage 3 unspecified; D63.1 Anemia in chronic kidney disease; N08 Glomerular disorders in diseases classified elsewhere; N25.81 Secondary hyperparathyroidism of renal origin; R73.09 Other abnormal glucose; B96.20 Unspecified Escherichia coli [E. coli] as the cause of diseases classified elsewhere

== ENCOUNTER 2023-06-17 08:20 | Emergency (ER) | payer MEDICARE ==
[2023-06-17] VITALS (11 sets, daily range): BP systolic 109–134; BP diastolic 69–87
[~2023-06-17] VITALS: Ht 188 cm; Wt 102.3 kg
[~2023-06-17 08:20] MED LIST changes: +CEFDINIR300 MG PO
[2023-06-17] MEDS ORDERED: TAMSULOSIN HCL0.4 MG PO (08:58)
[2023-06-17 08:59] LABS: BASO% 0.5 % (0-3); EOS% 14.2 % (0-8); HEMATOCRIT 39.6 % (39.0-50.0); HEMOGLOBIN 12.6 g/dl (14.0-18.0); IMMATURE GRANULOCYTES 0.5 % (0.0-5.0); LYMPH% 17.8 % (15-41); MEAN CELL VOLUME 93.8 fL CALC (80.0-100.0); MEAN CORPUSCULAR HGB 29.9 pG CALC (26.0-32.0); MEAN CORPUSCULAR HGB CONC 31.8 g/dL CAL (32.0-36.0); MONO% 9.2 % (2-13); NEUT# 3.21 thou/uL (1.82-7.42); NEUT% 57.8 % (42-76); RED BLOOD COUNT 4.22 mill/uL (4.70-6.10); RED CELL DISTRI WIDTH 16.3 % (11.5-15.5)
[2023-06-17 09:04] LABS: URINE BILIRUBIN - DIPSTICK NEGATIVE (NEGATIVE); URINE COLOR YELLOW; URINE GLUCOSE - DIPSTICK NEGATIVE (NEGATIVE); URINE KETONE Negative (NEGATIVE); URINE NITRITE - DIPSTICK NEGATIVE (Negative); URINE PROTEIN - DIPSTICK NEGATIVE (NEG-TRACE); URINE SPECIFIC GRAVITY 1.015; URINE UROBILINOGEN - DIPSTICK 0.2 E.U./dL (0.2)
[2023-06-17 09:05] LABS: URINE BLOOD DIPSTICK NEGATIVE (NEGATIVE); URINE LEUK ESTERASE NEGATIVE (NEGATIVE)
[2023-06-17 09:26] LABS: ALBUMIN 4.5 g/dL (3.2-5.0); BILIRUBIN, TOTAL 0.5 mg/dL (0.2-1.3); CREATININE 1.4 mg/dL (0.7-1.3); POTASSIUM 3.9 mmol/l (3.5-5.1); TOTAL PROTEIN 7.7 g/dL (6.3-8.2)
== END 2023-06-17 10:55 | disposition home or self-care (01) ==
LOC: ED 08:20
PROVIDERS: Family Medicine
DX: R10.30 Lower abdominal pain, unspecified (principal); R00.1 Bradycardia, unspecified; I10 Essential (primary) hypertension; E11.9 Type 2 diabetes mellitus without complications; E78.00 Pure hypercholesterolemia, unspecified; Z87.442 Personal history of urinary calculi; Z79.84 Long term (current) use of oral hypoglycemic drugs

== ENCOUNTER 2024-06-10 08:12 | Inpatient (IN) | payer MEDICARE ==
[~2024-06-10] VITALS: Ht 182.9 cm; Wt 113.4 kg
[2024-06-10] VITALS (10 sets, daily range): BP systolic 118–157; BP diastolic 77–99
[~2024-06-10 08:12] MED LIST changes: +TAMSULOSIN HCL0.4 MG PO
[2024-06-10 08:35] LABS: BASO% 0.3 % (0-3); EOS% 7.9 % (0-8); HEMATOCRIT 46.2 % (39.0-50.0); HEMOGLOBIN 15.2 g/dl (14.0-18.0); IMMATURE GRANULOCYTES 0.1 % (0.0-5.0); LYMPH% 10.9 % (15-41); MEAN CELL VOLUME 90.6 fL CALC (80.0-100.0); MEAN CORPUSCULAR HGB 29.8 pG CALC (26.0-32.0); MEAN CORPUSCULAR HGB CONC 32.9 g/dL CAL (32.0-36.0); MONO% 5.8 % (2-13); NEUT# 7.73 thou/uL (1.82-7.42); RED BLOOD COUNT 5.1 mill/uL (4.70-6.10)
[2024-06-10 08:40] LABS: URINE BLOOD DIPSTICK Negative (NEGATIVE); URINE GLUCOSE - DIPSTICK Negative (NEGATIVE); URINE KETONE Trace mg/dL (NEGATIVE); URINE LEUK ESTERASE Negative (NEGATIVE); URINE NITRITE - DIPSTICK Negative (Negative); URINE PROTEIN - DIPSTICK 30 mg/dL (NEG-TRACE)
[2024-06-10] MEDS ORDERED: KETOROLAC TROMETHAMINE 30 MG/ML SDV IV ONE (08:40)
[2024-06-10] MEDS ORDERED: SODIUM CHLORIDE 0.9% 1,000 ML IV ONE ×2 (08:40→12:03)
[2024-06-10] MEDS ORDERED: ONDANSETRON HCl 4 MG/2 ML SDV IV ONE (08:40)
[2024-06-10 08:42] LABS: URINE COLOR Yellow; URINE EPITHELIAL CELLS FEW EPI/hpf (0-FEW); URINE MUCUS FEW hpf (NONE-FEW)
[2024-06-10 08:43] LABS: CREATININE 1.5 mg/dL (0.7-1.3); POTASSIUM 3.9 mmol/l (3.5-5.1); TOTAL PROTEIN 8.3 g/dL (6.3-8.2)
[2024-06-10 08:55] LABS: ALBUMIN 5.1 g/dL (3.2-5.0); BILIRUBIN, TOTAL 0.5 mg/dL (0.2-1.3)
[2024-06-10] MEDS ORDERED: SODIUM CHLORIDE 0.45% 1,000 ML IV ONE (11:40)
[2024-06-10] MEDS ORDERED: LIDOcaine HCl 1% (Local Anesth.) 20 ML VIAL ONE (12:15)
[2024-06-10] MEDS ORDERED: FAMOTIDINE 10MG/ML 2ML SDV IV ONE (12:24)
[2024-06-10] MEDS ORDERED: SIMETHICONE 20 MG/0.3 ML PO PRN (14:35)
[2024-06-10] MEDS ORDERED: BENZOCAINE-MENTHOL (MOUTH-THRO 1 LOZ LOZ MT PRN (14:35)
[2024-06-10] MEDS ORDERED: ONDANSETRON HCl 4 MG/2 ML SDV IV PRN (14:35)
[2024-06-10] MEDS ORDERED: HYDROmorphone HCL 2 MG/AMP IV PRN (14:35)
[2024-06-10] MEDS ORDERED: LABETALOL HCL 20 MG/ 4 ML CARTRG IV PRN (14:40)
[2024-06-10] MEDS ORDERED: DEXTROSE 250 ML IV PRN (14:40)
[2024-06-10] MEDS ORDERED: LACTATED RINGER'S 1,000 ML IV SCH (14:45)
[2024-06-10] MEDS ORDERED: STERILE WATER 3,000 ML IV ONE (15:54)
[2024-06-10] MEDS ORDERED: SODIUM CHLORIDE 3,000 ML BAG FOR IRRIGATION IR ONE (15:54)
[2024-06-10] MEDS ORDERED: INSULIN LISPRO 100 UNITS/ML ML SC SCH (17:00)
[2024-06-11] VITALS (8 sets, daily range): BP systolic 123–169; BP diastolic 73–91
[2024-06-11 05:05] LABS: BASO% 0.2 % (0-3); EOS% 12.2 % (0-8); IMMATURE GRANULOCYTES 0.2 % (0.0-5.0); LYMPH% 5.4 % (15-41); MEAN CELL VOLUME 91.3 fL CALC (80.0-100.0); MEAN CORPUSCULAR HGB 30.4 pG CALC (26.0-32.0); MEAN CORPUSCULAR HGB CONC 33.3 g/dL CAL (32.0-36.0); MONO% 7.4 % (2-13); NEUT# 4.67 thou/uL (1.82-7.42); NEUT% 74.6 % (42-76); RED BLOOD COUNT 4.14 mill/uL (4.70-6.10); RED CELL DISTRI WIDTH 15.2 % (11.5-15.5)
[2024-06-11 05:20] LABS: HEMATOCRIT 37.8 % (39.0-50.0); HEMOGLOBIN 12.6 g/dl (14.0-18.0)
[2024-06-11 05:28] LABS: BILIRUBIN, TOTAL 0.5 mg/dL (0.2-1.3); CREATININE 1.2 mg/dL (0.7-1.3); POTASSIUM 4.3 mmol/l (3.5-5.1)
[2024-06-11 05:41] LABS: ALBUMIN 3.5 g/dL (3.2-5.0); TOTAL PROTEIN 5.9 g/dL (6.3-8.2)
[2024-06-11] MEDS ORDERED: TAMSULOSIN HCL 0.4 MG CAP PO SCH (09:00)
[2024-06-11] MEDS ORDERED: ALLOPURINOL 100 MG/TAB PO SCH (09:00)
[2024-06-11] MEDS ORDERED: hydroCHLOROthiazide 12.5 MG/CAP PO SCH (09:00)
[2024-06-11] MEDS ORDERED: amLODIPine BESYLATE 5 MG/TAB PO SCH (09:00)
[2024-06-11] MEDS ORDERED: LISINOPRIL 20 MG/TAB PO SCH (09:00)
[2024-06-12] VITALS (7 sets, daily range): BP systolic 134–172; BP diastolic 73–90
[2024-06-12] MEDS ORDERED: LACTATED RINGER'S 1,000 ML IV PRN (15:50)
[2024-06-13] VITALS (7 sets, daily range): BP systolic 119–149; BP diastolic 58–74
[2024-06-13] MEDS ORDERED: oxyCODONE 5MG/ ACETAMINOPHEN 325MG TAB PO PRN (10:20)
[2024-06-13] MEDS ORDERED: DOCUSATE CALCIUM 240 MG/CAP PO SCH (10:30)
[2024-06-14 03:54] VITALS: BP 167/77
[2024-06-14 04:20] VITALS: BP 167/77
[2024-06-14 04:50] LABS: BASO% 0.5 % (0-3); EOS% 14.6 % (0-8); HEMATOCRIT 35.3 % (39.0-50.0); HEMOGLOBIN 11.6 g/dl (14.0-18.0); IMMATURE GRANULOCYTES 0.2 % (0.0-5.0); LYMPH% 18.7 % (15-41); MEAN CELL VOLUME 91.9 fL CALC (80.0-100.0); MEAN CORPUSCULAR HGB 30.2 pG CALC (26.0-32.0); MEAN CORPUSCULAR HGB CONC 32.9 g/dL CAL (32.0-36.0); MONO% 10.4 % (2-13); NEUT# 3.15 thou/uL (1.82-7.42); NEUT% 55.6 % (42-76); RED BLOOD COUNT 3.84 mill/uL (4.70-6.10); RED CELL DISTRI WIDTH 15.1 % (11.5-15.5)
[2024-06-14 05:23] LABS: CREATININE 1.3 mg/dL (0.7-1.3); POTASSIUM 3.9 mmol/l (3.5-5.1)
[2024-06-14 07:05] VITALS: BP 137/74
[2024-06-14 08:32] VITALS: BP 137/74
== END 2024-06-14 13:40 | disposition home or self-care (01) | DRG 337 ==
LOC: ED 08:12 → ORM 11:55 → MS2 15:43
PROVIDERS: Family Medicine; ADMIT Surgery; ATTEND Surgery
PROC: 0DNB0ZZ Release Ileum, Open Approach (ICD-10-PCS; principal; 2024-06-10)
PROC: 0DNW0ZZ Release Peritoneum, Open Approach (ICD-10-PCS; 2024-06-10)
PROC: 0DNV0ZZ Release Mesentery, Open Approach (ICD-10-PCS; 2024-06-10)
PROC: 0DJD4ZZ Inspection of Lower Intestinal Tract, Percutaneous Endoscopic Approach (ICD-10-PCS; 2024-06-10)
DX: K56.50 Intestinal adhesions [bands], unspecified as to partial versus complete obstruction (principal); I10 Essential (primary) hypertension; E11.9 Type 2 diabetes mellitus without complications; I25.10 Atherosclerotic heart disease of native coronary artery without angina pectoris; I48.91 Unspecified atrial fibrillation; E78.00 Pure hypercholesterolemia, unspecified; E66.9 Obesity, unspecified; M10.9 Gout, unspecified; J02.9 Acute pharyngitis, unspecified; Z87.442 Personal history of urinary calculi; Z79.84 Long term (current) use of oral hypoglycemic drugs
CPT/HCPCS: J0690; Q9967